=== PATIENT | female | born 2005 | race African-American/Black ===

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

== ENCOUNTER 2024-08-25 16:17 | Emergency (ER) | payer MEDICAID, OTHER ==
[~2024-08-25] VITALS: Ht 167.6 cm; Wt 54.0 kg
[2024-08-25 16:22] VITALS: BP 142/89; PULSE 107; RESP 18; TEMP 98.2; O2SAT 99
[2024-08-26] MEDS ORDERED: ALBU90AE INH (00:57)
== END 2024-08-25 17:00 | disposition left against medical advice (07) ==
LOC: ER 16:17
DX: F91.9 Conduct disorder, unspecified (principal); Z53.21 Procedure and treatment not carried out due to patient leaving prior to being seen by health care provider

== ENCOUNTER 2024-08-25 17:18 | Emergency (ER) | payer MEDICAID ==
[~2024-08-25] VITALS: Ht 162.6 cm; Wt 55.0 kg
[2024-08-25 20:38] LABS: BASOPHILS % 0.6 % (0.0-2.0); EOSINOPHILS % 0.9 % (0.0-5.0); HEMATOCRIT. 36.3 % (36.0-48.0); HEMOGLOBIN. 11.8 g/dL (12.0-16.0); LYMPHOCYTES % 57.5 % (20.0-50.0); MEAN CORPUSCULAR HEMOGLOBIN 26.8 pg (28.0-32.0); MEAN CORPUSCULAR HGB CONC 32.5 g/dL (31.0-37.0); MEAN CORPUSCULAR VOLUME 82.2 fL (81.0-99.0); MEAN PLATELET VOLUME 7.8 fl (7.4-10.4); MONOCYTES % 5.6 % (2.0-8.0); NEUTROPHILS % 35.4 % (40.0-76.0); PLATELET 377 x1000/uL (130-400); RED BLOOD CELL COUNT 4.41 mill/uL (4.2-5.4)
[2024-08-25 20:40] LABS: CARBON DIOXIDE 25 mEq/L (21-32); CHLORIDE 107 mEq/L (98-107); POTASSIUM 3.7 mEq/L (3.5-5.1); SODIUM 143 mEq/L (136-145)
[2024-08-25 20:41] LABS: CALCIUM 9.2 mg/dL (8.7-10.4)
[2024-08-25 20:46] LABS: CREATININE 0.7 mg/dL (0.6-1.0); GLUCOSE 68 mg/dL (70-105)
[2024-08-25 20:49] LABS: UREA NITROGEN BLOOD < 5 mg/dL (9-23)
[2024-08-26] MEDS: IPRATROPIUM/ALBUTEROL 0.5-3(2.5)MG/3ML NEB HHN ONE (00:20)
[2024-08-26 00:21] VITALS: PULSE 76; RESP 18; O2SAT 97
[2024-08-26] MEDS ORDERED: ALBU90AE INH (00:57)
[2024-08-26] MEDS: DEXAMETHASONE 10 MG/ML VIAL PO ONE (01:04)
[2024-08-26 01:14] VITALS: BP 131/84; PULSE 77; RESP 20; TEMP 36.61404; O2SAT 97
== END 2024-08-26 01:15 | disposition home or self-care (01) ==
LOC: ER 17:18
DX: J45.901 Unspecified asthma with (acute) exacerbation (principal); Z79.52 Long term (current) use of systemic steroids
CPT/HCPCS: 80048; 85025; 36415; 71045; 93005; 99285; 94640; J1100; Z7610 ×3